=== PATIENT | female | born 1985 | race Caucasian/White ===

== ENCOUNTER 2024-01-31 13:00 | Outpatient (CLI) | payer BC, SELFPAY ==
[2024-01-31 14:39] LABS: Beta HCG Quantitative 107.86 mIU/ML
== END 2024-01-31 13:01 | disposition home or self-care (01) ==
PROVIDERS: PCP Physician Assistant; Visit Provider Obstetrics & Gynecology
DX: O20.0 Threatened abortion (principal); Z3A.01 Less than 8 weeks gestation of pregnancy
CPT/HCPCS: 36415; 84702

== ENCOUNTER 2024-02-02 15:58 | Outpatient (CLI) | payer BC, SELFPAY | END 2024-02-02 15:59 | disposition home or self-care (01) | LOC: ANHLAB 15:59 | PROVIDERS: PCP Physician Assistant; Visit Provider Obstetrics & Gynecology | DX: O20.0 Threatened abortion (principal); Z3A.00 Weeks of gestation of pregnancy not specified | CPT/HCPCS: 36415; 84702 ==

== ENCOUNTER 2024-02-08 14:02 | Outpatient (CLI) | payer BC, SELFPAY | END 2024-02-08 14:03 | disposition home or self-care (01) | LOC: ANHLAB 14:05 | PROVIDERS: PCP Physician Assistant; Visit Provider Obstetrics & Gynecology | DX: O03.9 Complete or unspecified spontaneous abortion without complication (principal); Z3A.00 Weeks of gestation of pregnancy not specified | CPT/HCPCS: 36415 ==

== ENCOUNTER 2024-02-09 13:38 | Outpatient (CLI) | payer BC, SELFPAY ==
[2024-02-09 15:33] LABS: Beta HCG Quantitative 13.47 mIU/ML
== END 2024-02-09 13:39 | disposition home or self-care (01) ==
LOC: ANHLAB 13:45
PROVIDERS: PCP Physician Assistant; Visit Provider Obstetrics & Gynecology
DX: O03.9 Complete or unspecified spontaneous abortion without complication (principal); Z3A.00 Weeks of gestation of pregnancy not specified
CPT/HCPCS: 36415; 84702

== ENCOUNTER 2024-02-16 16:48 | Outpatient (CLI) | payer BC, SELFPAY ==
[2024-02-16 18:12] LABS: Beta HCG Quantitative < 2.39 mIU/ML
== END 2024-02-16 16:49 | disposition home or self-care (01) ==
LOC: ANHLAB 16:50
PROVIDERS: PCP Physician Assistant; Visit Provider Advanced Practice Midwife
DX: O03.9 Complete or unspecified spontaneous abortion without complication (principal); Z3A.00 Weeks of gestation of pregnancy not specified
CPT/HCPCS: 36415; 84702

== ENCOUNTER 2024-03-22 17:21 | Outpatient (CLI) | payer BC, SELFPAY ==
[2024-03-22 18:12] LABS: Beta HCG Quantitative 305.04 mIU/ML
== END 2024-03-22 17:22 | disposition home or self-care (01) ==
LOC: ANHLAB 17:23
PROVIDERS: PCP Physician Assistant; Visit Provider Obstetrics & Gynecology
DX: Z87.59 Personal history of other complications of pregnancy, childbirth and the puerperium (principal)
CPT/HCPCS: 36415; 84702

== ENCOUNTER 2024-03-24 15:47 | Outpatient (CLI) | payer BC, SELFPAY | END 2024-03-24 15:48 | disposition home or self-care (01) | LOC: ANHLAB 15:55 | PROVIDERS: PCP Physician Assistant; Visit Provider Obstetrics & Gynecology | DX: Z87.59 Personal history of other complications of pregnancy, childbirth and the puerperium (principal) | CPT/HCPCS: 36415; 84702 ==

== ENCOUNTER 2024-12-03 13:57 | Observation (INO) | payer BC, SELFPAY ==
[2024-12-03] VITALS (43 sets, daily range): BP systolic 129–168; BP diastolic 59–86; PULSE 56–97; TEMP 36.6–36.7; O2SAT 90–99
[2024-12-03 11:45] LABS: Basophils Absolute Auto 0.1 K/mm3 (0.0-0.1); Basophils Percent Auto 0.8 % (0.2-1.2); Eosinophils Absolute Auto 0.2 K/mm3 (0-0.3); Eosinophils Percent Auto 1.9 % (0-4.4); Hematocrit 38.4 % (37.0-47.0); Hemoglobin 12.3 g/dL (12.0-15.0); Immature Granulocyte Absolute 0.04 K/mm3 (0.00-0.031); Immature Granulocyte Percent A 0.5 % (0-0.5); Lymphocytes Absolute Auto 1.58 K/mm3 (0.9-3.2); Lymphocytes Percent Auto 18.9 % (18.3-44.2); Mean Corpuscular Hemoglobin 27.1 pg (26-34); Mean Corpuscular Volume 84.6 fl (80-100); Mean Platelet Volume 8.7 fl (7.4-10.4); Monocytes Absolute Auto 0.6 K/mm3 (0.1-0.6); Monocytes Percent Auto 7.6 % (2.6-8.5); Neutrophils Absolute Auto 5.9 K/mm3 (1.3-6.7); Neutrophils Percent Auto 70.3 % (45.5-73.1); Platelet Count Result 298 k/mm3 (150-375); Red Blood Count 4.54 M/mm3 (4.2-5.4); Red Cell Distribution Width 12.9 % (11.5-14.5); White Blood Count 8.4 K/mm3 (4.5-10.0)
[2024-12-03 11:58] LABS: Alanine Aminotransferase 19 U/L (6-35); Albumin Level 3.5 g/dL (3.5-5.1); Alkaline Phosphatase 159 U/L (38-126); Anion Gap 7 mmol/L (4-12); Aspartate Amino Transferase 23 U/L (14-36); Bilirubin,Total 0.8 mg/dL (0.2-1.3); Blood Urea Nitrogen 11 mg/dL (7-17); Calcium 9.2 mg/dL (8.4-10.2); Carbon Dioxide 24 mmol/L (22-30); Chloride 107 mmol/L (98-107); Estimated Glomerular Filt Rate > 60; Glucose 88 mg/dL (65-110); Potassium 4.2 mmol/L (3.4-5.0); Sodium 138 mmol/L (137-145); Uric Acid 6.5 mg/dL (2.5-7.5)
--- NOTE | 2024-12-03 12:11 | PC.NURSE ---
Dr. Anderson updated on patient's arrival to unit with elevated blood pressures and a headache. Orders received to give tylenol and nifedipine.
[2024-12-03] MEDS: NIFEdipine 30 MG TAB.ER.24 60 MG PO (12:20)
[2024-12-03] MEDS: ACETAMINOPHEN 500 MG TABLET 1000 MG PO (12:21)
[2024-12-03] MEDS: SUMAtriptan SUCCINATE 25 MG TABLET 50 MG PO ×2 (13:59→22:17)
--- NOTE | 2024-12-03 14:04 | PC.NURSE ---
Dr. Anderson called regarding patient's headache still a 5/10 and blood pressures. Orders received to start magnesium sulfate.
[2024-12-03] MEDS: LACTATED RINGERS 1,000 ML 75 ML IV CONT (14:17)
[2024-12-03] MEDS: MAGNESIUM SULF 4 GM/WATER100ML 4 GM/100 ML BAG IVPB (14:18)
[2024-12-03] MEDS: MAGNESIUM SULF 20GM/WATER500ML 500 ML 50 MG IV CONT (14:49)
--- NOTE | 2024-12-03 16:18 | PC.NURSE ---
Dr. Anderson updated on patient's blood pressures and currently not having a headache, orders received to give 200 labetalol BID.
[2024-12-03] MEDS: LABETALOL HCL 100 MG TABLET 200 MG PO (16:34)
--- NOTE | 2024-12-03 22:00 | PC.NURSE ---
Call placed to Dr. Anderson. Pt requested medication for headache. Order for Imitrex PO 50 mg Q6H
[2024-12-04] VITALS (11 sets, daily range): BP systolic 131–148; BP diastolic 65–73; PULSE 56–219; RESP 18; TEMP 36.5–36.6; O2SAT 77–99
[2024-12-04] MEDS: MAGNESIUM SULF 20GM/WATER500ML 500 ML 50 MG IV CONT (00:18)
[2024-12-04] MEDS: ACETAMINOPHEN 500 MG TABLET 1000 MG PO ×2 (00:31→07:54)
[2024-12-04] MEDS: LACTATED RINGERS 1,000 ML 75 ML IV CONT (02:06)
--- NOTE | 2024-12-04 06:11 | PC.NURSE ---
Handoff report given to Obdulia ROGERS
[2024-12-04] MEDS: LABETALOL HCL 100 MG TABLET 200 MG PO (07:54)
--- NOTE | 2024-12-04 08:34 | P.HP_ITS ---
H&P: HPI History of Present Illness Date/Time: 12/04/24 08:34 Chief Complaint: Headache, elevated blood pressures Narrative: this patient is a 39-year-old female who is approximately 10 days from a vaginal . She presented with headache and elevated blood pressures. Her blood pressures were severe range. She denies any chest pain or shortness of breath. She denies any nausea, vomiting, fever, chills. She denies any epigastric pain. She denies any sudden onset swelling over extremities or face. Her laboratory evaluation was normal. We initiated magnesium sulfate. She was started on nifedipine and labetalol. Blood pressures were controlled on 60 mg of nifedipine q.d. and 200 mg labetalol b.i.d. we agreed to discontinue magnesium sulfate orally and consider discharge if blood pressures are stable. Review of Systems Review of Systems: All systems reviewed & are unremarkable except as noted in HPI and below Constitutional: Constitutional: Denies chills, Denies fatigue, Denies fever(s) and Denies weakness Eyes: Eyes: Denies blurry vision, Denies change in vision, Denies loss of peripheral vision, Denies loss of vision, Denies other visual disturbances and Denies eye pain ENT: Denies vertigo, Denies dizziness, Denies hearing loss, Denies mouth pain, Denies nasal obstruction, Denies neck mass and Denies neck pain Cardiovascular: Cardiovascular: Denies chest pain, Denies diaphoresis, Denies syncope, Denies leg edema and Denies dyspnea Respiratory: Respiratory: Denies chest congestion, Denies cough, Denies hemoptysis, Denies dyspnea and Denies wheezing Gastrointestinal: Gastrointestinal: Denies abdominal pain, Denies constipation, Denies diarrhea, Denies nausea and Denies vomiting Genitourinary: Genitourinary: Denies hematuria, Denies change in libido, Denies nocturia, Denies genital lesions, Denies flank pain and Denies urinary urgency Musculoskeletal: Musculoskeletal: Denies abnormal gait, Denies back pain, Denies myalgias, Denies arthralgias, Denies joint swelling, Denies muscle weakness and Denies neck pain Integumentary/Breasts: Skin/Breast: Denies swelling, Denies breast pain, Denies breast mass, Denies dry skin, Denies nipple discharge, Denies unusual bruising and Denies jaundice Neurologic: Denies Neuro-related abnormal movements, Denies Abnormal speech present, Denies abnormal gait, Denies behavioral changes, Denies confusion, Denies vertigo, Denies dizziness, Denies syncope, Denies loss of vision, Denies memory loss, Denies convulsions and Denies weakness Psychiatric: Psychiatric: Denies abnormal sleep pattern, Denies behavioral changes, Denies change in libido, Denies confusion, Denies depression, Denies anhedonia and Denies memory loss Endocrine: Endocrine: Reports no additional endocrine complaints, Denies change in libido and Denies fatigue Hematologic/Lymphatic: Hematologic/Lymphatic: Reports no additional hematologic/lymphatic complaints Allergic/Immunologic: Allergic/Immunologic: Reports no additional allergic/immunologic complaints and Denies wheezing PMFSH Family History Family History Father Acute myocardial infarction Social History Social History Smoking status: Never smoker Substance use: never Do You Feel Safe in your Home?: No Lack of Transportation: No Lack of Food: Never True Current Housing: I Have Housing Concerned About Future Housing: No Difficulty Paying Gas/Electric Bills: No Difficulty Paying for Meds: No Currently Unemployed: No Education: High School Diploma/GED Difficulty w/ Childcare or Family Care: No Spiritual care concerns: No Meds Home Medications and Allergies Home Medications ?Medication ?Instructions ?Recorded ?Confirmed ?Type ferrous sulfate 325 mg (65 mg 325 mg PO DAILY 11/10/24 12/04/24 History iron) tablet (iron) vit no.95-ferrous 1 tablet PO DAILY 11/10/24 12/04/24 History fumarate 28 mg-folic acid 800 mcg tablet () ibuprofen 600 mg tablet 600 mg PO Q6H PRN Cramping #30 tabs 11/25/24 12/04/24 Rx Allergies Allergy/AdvReac Type Severity Reaction Status Date / Time carbamazepine Allergy Mild Rash Verified 11/24/24 01:16 nickel Allergy Unknown Rash Verified 11/24/24 01:16 Vital Signs Vital Signs - 24 hr 12/03/24 14:17 12/03/24 14:22 12/03/24 14:27 Temperature Pulse Rate 60 Respiratory Rate Blood Pressure 168/83 H Pulse Oximetry 94 94 96 12/03/24 14:30 12/03/24 14:32 12/03/24 14:37 Temperature Pulse Rate 64 Respiratory Rate Blood Pressure 164/84 H Pulse Oximetry 95 96 12/03/24 14:42 12/03/24 14:47 12/03/24 14:49 Temperature 97.8 F Pulse Rate Respiratory Rate Blood Pressure Pulse Oximetry 94 90 12/03/24 14:52 12/03/24 14:57 12/03/24 15:01 Temperature Pulse Rate 68 Respiratory Rate Blood Pressure 162/86 H Pulse Oximetry 95 94 12/03/24 15:02 12/03/24 15:07 12/03/24 15:12 Temperature Pulse Rate Respiratory Rate Blood Pressure Pulse Oximetry 95 95 95 12/03/24 15:17 12/03/24 15:22 12/03/24 15:27 Temperature Pulse Rate Respiratory Rate Blood Pressure Pulse Oximetry 94 94 98 12/03/24 15:30 12/03/24 15:32 12/03/24 15:37 Temperature Pulse Rate 59 L Respiratory Rate Blood Pressure 159/75 H Pulse Oximetry 95 96 12/03/24 15:42 12/03/24 15:47 12/03/24 15:52 Temperature Pulse Rate Respiratory Rate Blood Pressure Pulse Oximetry 94 96 94 12/03/24 15:57 12/03/24 16:00 12/03/24 16:02 Temperature Pulse Rate 65 Respiratory Rate Blood Pressure 163/79 H Pulse Oximetry 94 96 12/03/24 16:10 12/03/24 16:15 12/03/24 16:20 Temperature Pulse Rate Respiratory Rate Blood Pressure Pulse Oximetry 99 97 99 12/03/24 16:25 12/03/24 16:30 12/03/24 16:33 Temperature Pulse Rate 70 Respiratory Rate Blood Pressure 153/74 H Pulse Oximetry 98 99 12/03/24 16:34 12/03/24 17:31 12/03/24 18:52 Temperature Pulse Rate 70 90 Respiratory Rate Blood Pressure 134/63 Pulse Oximetry 98 97 12/03/24 18:54 12/03/24 19:30 12/03/24 20:58 Temperature 98.1 F Pulse Rate 89 Respiratory Rate Blood Pressure 132/61 Pulse Oximetry 98 12/03/24 20:59 12/03/24 22:21 12/03/24 22:22 Temperature Pulse Rate 82 87 Respiratory Rate Blood Pressure 129/59 L 148/76 H Pulse Oximetry 98 12/03/24 22:39 12/04/24 01:12 12/04/24 01:12 Temperature 98 F Pulse Rate Respiratory Rate Blood Pressure Pulse Oximetry 81 L 99 12/04/24 01:13 12/04/24 01:16 12/04/24 05:00 Temperature 97.9 F Pulse Rate 82 Respiratory Rate Blood Pressure 148/73 H Pulse Oximetry 98 12/04/24 05:00 12/04/24 05:01 12/04/24 06:51 Temperature 98 F Pulse Rate 89 87 Respiratory Rate Blood Pressure 145/66 H 132/65 Pulse Oximetry 12/04/24 06:52 12/04/24 07:00 12/04/24 07:54 Temperature 97.7 F Pulse Rate 87 Respiratory Rate 18 Blood Pressure Pulse Oximetry 77 L Exam Const: General: cooperative, healthy appearing, comfortable and no acute distress Orientation/consciousness: oriented to person, oriented to place and oriented to time HENMT: Head: normal to inspection Ears: external ears normal Fa ce/Nose/Sinus: Normal external nose present and normal facial exam Face and sinus: normal facial exam Eyes: General: appearance normal, both eyes and all related structures Neck: Neck: normal visual inspection, trachea midline and supple Resp: Auscultation: clear to auscultation bilaterally, no crackles, no rales, no rhonchi and no wheezes Cardio: Rate: regular rate Rhythm: regular rhythm Heart sounds: no click, no murmurs and no rubs GI: GI Palp: No abdominal tenderness, No Soft to palpation, No Tenderness to palpation present (GI) and No Palpable mass present Auscultation: normal bowel sounds Skin: General skin exam: normal color and no rashes or lesions noted Neuro: General: oriented to person, oriented to place and oriented to time Extrem: General: normal to inspection, no joint enlargement, no clubbing, cyanosis or edema, no pedal edema and no calf tenderness Psych: Appearance: grossly normal Mental Status: mental status grossly normal Speech and movement: Normal speech and movement present H&P: Results Labs Labs: Short CBC 12/03/24 Range/Units 11:30 WBC 8.4 (4.5-10.0) K/mm3 Hgb 12.3 (12.0-15.0) g/dL Hct 38.4 (37.0-47.0) % Plt Count 298 (150-375) k/mm3 BMP 12/03/24 11:30 Sodium 138 Potassium 4.2 Chloride 107 Carbon Dioxide 24 BUN 11 Creatinine 0.64 L Glucose 88 Calcium 9.2 Liver Function 12/03/24 Range/Units 11:30 Total Bilirubin 0.8 (0.2-1.3) mg/dL AST 23 (14-36) U/L ALT 19 (6-35) U/L Alkaline Phosphatase 159 H (38-126) U/L Albumin 3.5 (3.5-5.1) g/dL Assessment and Plan Assessment and plan (1) Preeclampsia in period: Code(s): O14.95 - Unspecified pre-eclampsia, complicating the puerperium Status: Acute Plan this patient is a 39-year-old female who is approximately 10 days from a vaginal . She presented with headache and elevated blood pressures. Her blood pressures were severe range. She denies any chest pain or shortness of breath. She denies any nausea, vomiting, fever, chills. She denies any epigastric pain. She denies any sudden onset swelling over extremities or face. Her laboratory evaluation was normal. We initiated magnesium sulfate. She was started on nifedipine and labetalol. Blood pressures were controlled on 60 mg of nifedipine q.d. and 200 mg labetalol b.i.d. we agreed to discontinue magnesium sulfate orally and consider discharge if blood pressures are stable.
--- NOTE | 2024-12-04 12:16 | PC.NURSE ---
Dr Anderson notified of BP's with mag off, OK to dc home.
--- NOTE | 2024-12-24 12:20 | PM.OBTRLD ---
OB - Triage/Final Diagnosis Visit Information Comments/Additional reasons for admission: I have assessed the risk for this patient, Aneudy Adan, and determined that she would benefit from observation care. Evaluation Laboratory results: Laboratory Tests 12/03/24 11:30 WBC 8.4 RBC 4.54 Hgb 12.3 Hct 38.4 MCV 84.6 MCH 27.1 MCHC 32.0 RDW 12.9 Plt Count 298 MPV 8.7 Immature Gran % (Auto) 0.5 Neut % (Auto) 70.3 Lymph % (Auto) 18.9 Whiteside % (Auto) 7.6 Eos % (Auto) 1.9 Baso % (Auto) 0.8 Lymph # (Auto) 1.58 Whiteside # (Auto) 0.6 Eos # (Auto) 0.2 Baso # (Auto) 0.1 Abs Immat Gran (auto) 0.04 H Absolute Neuts (auto) 5.9 Absolute Nucleated RBC 0.000 Nucleated RBC % 0.0 Sodium 138 Potassium 4.2 Chloride 107 Carbon Dioxide 24 Anion Gap 7 BUN 11 Creatinine 0.64 L Estim Creat Clear Calc Not Reportable Estimated GFR > 60 Glucose 88 Uric Acid 6.5 Calcium 9.2 Total Bilirubin 0.8 AST 23 ALT 19 Alkaline Phosphatase 159 H Total Protein 6.0 L Albumin 3.5 Final Diagnosis (1) Preeclampsia in period: Code(s): O14.95 - Unspecified pre-eclampsia, complicating the puerperium Status: Acute
== END 2024-12-04 12:38 | disposition home or self-care (01) ==
LOC: ANHOBPP 13:57
PROVIDERS: Admitting Provider Obstetrics & Gynecology; PCP Physician Assistant; Visit Provider Obstetrics & Gynecology
DX: O14.95 Unspecified pre-eclampsia, complicating the puerperium (principal)
CPT/HCPCS: 36415; 80053; 84550; 85025; 96361; 96365; 96366; 96376; A9270; G0378; G0379; J3475; J7120